=== PATIENT | female | born 1935 | race Caucasian/White ===

== ENCOUNTER 2020-04-11 12:52 | Day surgery (SDC) | payer MEDICARE ==
[~2020-04-11] VITALS: Ht 168.9 cm; Wt 73.6 kg
[2020-04-11] MEDS ORDERED: LACTATED RINGERS 1,000 ML IV SCH (13:54)
[2020-04-11 14:00] VITALS: BP 167/86
[2020-04-11] MEDS ORDERED: CHLORHEXIDINE 15 ML UDC MM ONE (14:00)
[2020-04-11] MEDS ORDERED: LIDOCAINE-MPF 1%, 2ML INFIL ONE (14:00)
[2020-04-11] MEDS ORDERED: ESOM20CA PO (14:02)
[2020-04-11] MEDS ORDERED: HYDR-3237 PO (14:08)
[2020-04-11] MEDS ORDERED: CITA20TA9 PO (14:08)
[2020-04-11] MEDS ORDERED: BUDE10.2 INH (14:08)
[2020-04-11] MEDS ORDERED: DILT120C48 PO (14:08)
[2020-04-11] MEDS ORDERED: FOLI-17 PO (14:08)
[2020-04-11] MEDS ORDERED: LACT1CAP43 PO (14:08)
[2020-04-11] MEDS ORDERED: CHOL10003 PO (14:08)
[2020-04-11] MEDS ORDERED: PRAV10TA2 PO (14:08)
[2020-04-11] MEDS ORDERED: TRIA1CAP3 PO (14:08)
[2020-04-11] MEDS ORDERED: CLOP75TA PO (14:08)
[2020-04-11] MEDS ORDERED: TOFA5TAB PO (14:08)
[2020-04-11] MEDS ORDERED: MINERAL OIL 10 ML VIAL MC ONE (14:18)
[2020-04-11] MEDS ORDERED: LIDOCAINE 1%-EPI 1:100K, 20ML ONE (14:19)
[2020-04-11] MEDS ORDERED: BACITRACIN/POLYMIXIN B SULFATE OINT 14 GM ONE ×2 (14:19→14:20)
[2020-04-11] MEDS ORDERED: EPINEPHRINE 1 MG/ML, 1ML ONE (14:23)
[2020-04-11] MEDS ORDERED: BUPIVACAINE/PF-EPI 0.5% 1:200K ONE (14:23)
[2020-04-11] MEDS ORDERED: FENTANYL PF 100 MCG/2ML ONE ×2 (15:21→17:19)
[2020-04-11] MEDS ORDERED: PROPOFOL 50 ML ONE (15:25)
[2020-04-11] MEDS ORDERED: BUPIVACAINE/PF-EPI 0.5% 1:200K IM ONE (15:45)
[2020-04-11] MEDS ORDERED: ACETAMINOPHEN 325 MG TABLET PO PRN (16:30)
[2020-04-11] MEDS ORDERED: OXYcodone 5 MG/5 ML ORAL.SOL UDC PO PRN (16:30)
[2020-04-11] MEDS ORDERED: HYDROmorphone 1 MG/ML, 1ML INJ IVPush PRN (16:30)
[2020-04-11] MEDS ORDERED: ONDANSETRON 2MG/ML, 2ML IVPush PRN (16:30)
[2020-04-11] MEDS ORDERED: PROMETHAZINE 25 MG SUPP PR PRN (16:30)
[2020-04-11] MEDS ORDERED: hydrALAzine 20 MG/ML, 1ML IV PRN (16:30)
[2020-04-11] MEDS ORDERED: PROMETHAZINE 25 MG/ML, 1ML IVPush PRN (16:30)
[2020-04-11] MEDS ORDERED: LABETALOL 5MG/ML, 20ML IV PRN (16:30)
[2020-04-11] MEDS ORDERED: DEXAMETHASONE 4 MG/ML, 1ML ONE (16:49)
[2020-04-11] MEDS ORDERED: SUGAMMADEX 200 MG/2 ML IVPush ONE (16:49)
[2020-04-11] MEDS ORDERED: GLYCOPYRROLATE 0.2MG/1ML, 5ML ONE (16:49)
[2020-04-11] MEDS ORDERED: PROPOFOL 10 MG/ML, 20ML ONE (16:49)
[2020-04-11] MEDS ORDERED: SUCCINYLCHOLINE 20 MG/ML, 10ML ONE (16:49)
[2020-04-11] MEDS ORDERED: ONDANSETRON 2MG/ML, 2ML ONE (16:49)
[2020-04-11] MEDS ORDERED: ROCURONIUM 10MG/ML,5ML ONE (16:49)
[2020-04-11] MEDS ORDERED: CEFAZOLIN 1,000 MG ONE (16:49)
[2020-04-11] MEDS ORDERED: NEOSTIGMINE 1 MG/ML, 10ML ONE (16:49)
[2020-04-11] MEDS ORDERED: ACETAMINOPHEN 650 MG/20.3 ML UDC ONE (17:19)
[2020-04-11] MEDS ORDERED: OXYcodone 5 MG/5 ML ORAL.SOL UDC ONE (17:20)
[2020-04-11] MEDS: FENTANYL PF 100 MCG/2ML IV PRN ×2 (17:30→17:36)
[2020-04-11] MEDS ORDERED: hydrALAzine 20 MG/ML, 1ML ONE (17:55)
== END 2020-04-11 19:15 | disposition home or self-care (01) ==
LOC: OUT 12:52
PROVIDERS: ATTEND Plastic Surgery
DX: C44.329 Squamous cell carcinoma of skin of other parts of face (principal); I10 Essential (primary) hypertension; E11.9 Type 2 diabetes mellitus without complications; F32.9 Major depressive disorder, single episode, unspecified; M06.9 Rheumatoid arthritis, unspecified; Z79.899 Other long term (current) drug therapy; Z86.73 Personal history of transient ischemic attack (TIA), and cerebral infarction without residual deficits; Z88.0 Allergy status to penicillin; Z90.49 Acquired absence of other specified parts of digestive tract; Z90.710 Acquired absence of both cervix and uterus; Z98.890 Other specified postprocedural states; Z82.49 Family history of ischemic heart disease and other diseases of the circulatory system
CPT/HCPCS: 11643; 13132; 14301; 14302; 15120; 82962; 88305; C1760; J0171; J0360; J0690; J1100; J2405; J2704; J3010; J7120; J2710; J3490; J0330